=== PATIENT | female | born 1965 ===

== ENCOUNTER 2018-04-14 22:56 | Emergency (ER) | payer SELFPAY ==
[2018-04-14 23:07] VITALS: O2SAT 99
--- NOTE | 2018-04-15 00:41 | ED PDOC ---
HPI: Back Time Seen by Provider: 04/14/18 23:07 Chief Complaint (Nursing): Back Pain Chief Complaint (Provider): Low back pain x 5 days History Per: Patient History/Exam Limitations: no limitations Onset/Duration Of Symptoms: Days Current Symptoms Are (Timing): Still Present Additional Complaint(s): 52 yo female with no medical problems presents for evaluation of low back pain, non-radiating. Pt states the pain is worse with walking or getting up. Pt used icy hot with no relief. Pt reports pain in the past but states it has not lasted this long. Pt states she has not taken any medications for pain. no numbness/tingling. No bladder or bowel incontinence. No fever/chills. Pt states she has never had imaging on her back in the past. Past Medical History Reviewed: Historical Data, Nursing Documentation, Vital Signs Vital Signs: Last Vital Signs Temp 98.2 F 04/14/18 23:03 Pulse 68 04/14/18 23:03 Resp 18 04/14/18 23:03 BP 132/75 04/14/18 23:03 Pulse Ox 99 04/14/18 23:03 - Medical History PMH: No Chronic Diseases - Surgical History Surgical History: No Surg Hx - Family History Family History: States: No Known Family Hx - Living Arrangements Living Arrangements: With Family - Social History Current smoker - smoking cessation education provided: No Alcohol: None Drugs: Denies - Home Medications Home Medications: Ambulatory Orders Medication Instructions Recorded Cyclobenzaprine [Cyclobenzaprine 10 mg PO Q8H PRN #12 tab 04/15/18 HCl] Naproxen [Naprosyn] 500 mg PO BID PRN #20 tablet 04/15/18 - Allergies Allergies/Adverse Reactions: Allergies Allergy/AdvReac Type Severity Reaction Status Date / Time No Known Allergies Allergy Verified 04/14/18 23:03 Review of Systems ROS Statement: Except As Marked, All Systems Reviewed And Found Negative Constitutional: Negative for: Fever, Chills Gastrointestinal: Negative for: Nausea, Vomiting, Abdominal Pain Genitourinary Female: Negative for: Dysuria, Frequency, Incontinence Musculoskeletal: Positive for: Back Pain Physical Exam - Reviewed Nursing Documentation Reviewed: Yes Vital Signs Reviewed: Yes - Physical Exam Appears: Positive for: Well, Non-toxic, No Acute Distress Head Exam: Positive for: ATRAUMATIC, NORMAL INSPECTION, NORMOCEPHALIC Skin: Positive for: Normal Color, Warm, DRY Eye Exam: Positive for: Normal appearance ENT: Positive for: Normal ENT Inspection Neck: Positive for: Normal Cardiovascular/Chest: Positive for: Regular Rate, Rhythm Respiratory: Positive for: Normal Breath Sounds. Negative for: Accessory Muscle Use, Respiratory Distress Gastrointestinal/Abdominal: Positive for: Normal Exam, Soft. Negative for: Tenderness Back: Positive for: Normal Inspection, Vertebral Tenderness (Midline, lower back ). Negative for: L CVA Tenderness, R CVA Tenderness Extremity: Positive for: Normal ROM Neurologic/Psych: Positive for: Alert, Oriented - ECG O2 Sat by Pulse Oximetry: 99 Medical Decision Making Medical Decision Making: XR without acute fracture or dislocation. Pt feels better on re-evaluation. Disposition - Clinical Impression Clinical Impression: Back pain - Patient ED Disposition Is Patient to be Admitted: No Counseled Patient/Family Regarding: Diagnosis, Need For Followup, Rx Given - Disposition Referrals: [facility] [Outside] Disposition: Routine/Home Disposition Time: 02:24 Condition: STABLE Prescriptions: Cyclobenzaprine [Cyclobenzaprine HCl] 10 mg PO Q8H PRN #12 tab PRN Reason: Muscle Spasm Naproxen [Naprosyn] 500 mg PO BID PRN #20 tablet PRN Reason: Pain Instructions: Low Back Pain (DC), Back Exercises Forms: [facility] ([place]o), [facility] ED School/Work Excuse Print Language: [place] CITIZEN
[2018-04-15 03:32] VITALS: BP 127/77; PULSE 63; RESP 17; TEMP 98.6
--- NOTE | 2018-04-15 16:31 | RAD ---
Date of service: 04/15/2018 PROCEDURE: Radiographs of the Lumbar Spine. HISTORY: back pain, no trauma COMPARISON: No prior. FINDINGS: BONES: Normal alignment. No listhesis. No fracture. DISC SPACES: Disc space heights relatively maintained. Multilevel small marginal anterolateral osteophytes are present. OTHER FINDINGS: None. IMPRESSION: No acute fractures. Minor multilevel degenerative spondylosis.
== END 2018-04-15 02:45 | disposition home or self-care (01) ==
LOC: H.ER 22:56
DX: M54.5 Low back pain (principal)